=== PATIENT | male | born 1980 | race Caucasian/White ===

== ENCOUNTER 2022-07-13 01:53 | Emergency (ER) | payer BC ==
[2022-07-13] MEDS ORDERED: Dexamethasone 10 MG/ML SDV PO ONE (02:12)
[2022-07-13 03:05] LABS: CORONAVIRUS COVID-19 NAA POSITIVE (NEGATIVE); INFLUENZA A NAA NEGATIVE (NEGATIVE); INFLUENZA B NAA NEGATIVE (NEGATIVE); RESPIRATORY SYNCYTIAL VIR NAA NEGATIVE (NEGATIVE)
== END 2022-07-13 03:20 | disposition home or self-care (01) ==
LOC: MW.ED 01:53
DX: U07.1 COVID-19 (principal); E11.9 Type 2 diabetes mellitus without complications; Z79.84 Long term (current) use of oral hypoglycemic drugs
CPT/HCPCS: 0241U; 87651; 99284; J8540